=== PATIENT | male | born 1995 | race African-American/Black ===

== ENCOUNTER 2020-08-05 22:31 | Inpatient (IN) | payer OTHER ==
[~2020-08-05] VITALS: Ht 180.3 cm; Wt 52.6 kg
[~2020-08-05 22:31] MED LIST: BENADRYL25 MG; IBUPROFEN 600600 M1 PO; NOHOMEMEDICATIONS; TRAMADOL 50 MG50 MG PO
[2020-08-05 22:33] VITALS: BP 109/66
[2020-08-05] MEDS ORDERED: HUMALOG100 UNIT/1 SUBQ ×2 (22:37→22:38)
[2020-08-05] MEDS ORDERED: LANTUS SUBQ (22:38)
[2020-08-05 23:10] LABS: ABSOLUTE NEUTROPHILS 2.9 thou/uL (1.4-8.2); BASOPHILS 0.7 % (0.0-2.0); EOSINOPHILS 0.4 % (0.0-3.0); HEMOGLOBIN 14.4 gm/dL (14.0-18.0); LYMPHOCYTES 41.5 % (24.0-44.0); MCH 30.3 pg (26.0-34.0); MCHC 33.5 g/dL (28.0-37.0); MCV 90.6 fL (80.0-100.0); MONOCYTES 4.9 % (1.0-8.0); PLATELET COUNT 193 thou/uL (150-400); POLYS 52.5 % (36.0-66.0); RBC 4.75 mil/uL (4.50-6.00); WBC 5.4 thou/uL (4.0-11.0)
[2020-08-05 23:25] LABS: APTT 25.9 Seconds (24.5-32.8); PROTIME 9.6 Seconds (9.3-11.4)
[2020-08-05 23:26] LABS: CALCIUM 9.5 mg/dL (8.5-10.1); CREATININE 1.4 mg/dL (0.7-1.3); POTASSIUM 4.5 mmol/L (3.5-5.1)
[2020-08-05 23:29] LABS: ALBUMIN 4.3 g/dL (3.4-5.0); TOTAL PROTEIN 8.1 g/dL (6.4-8.2)
[2020-08-05 23:33] LABS: AMP/METHAMP Negative (Negative); BARBITURATES Negative (Negative); BENZODIAZEPINES Negative (Negative); COCAINE Negative (Negative); METHADONE Negative (Negative); OPIATES Negative (Negative); PCP Negative (Negative)
[2020-08-05 23:36] LABS: URINE BILIRUBIN NEGATIVE (Negative); URINE BLOOD NEGATIVE (Negative); URINE CLARITY CLEAR; URINE COLOR YELLOW; URINE GLUCOSE-RANDOM* 3+ (Negative); URINE KETONES 2+ (Negative); URINE LEUKOCYTES-REFLEX NEGATIVE (Negative); URINE NITRITE-REFLEX NEGATIVE (Negative); URINE PROTEIN (DIPSTICK) NEGATIVE (Negative); URINE SPECIFIC GRAVITY <= 1.005 (1.005-1.035); URINE UROBILINOGEN 0.2 E.U./dl (0.2-1.0)
--- NOTE | 2020-08-05 23:54 | NUR ---
BLOOD GLUCOSE 847
[2020-08-06] VITALS (21 sets, daily range): BP systolic 94–121; BP diastolic 53–79
[2020-08-06 01:06] LABS: LARGE PLATELETS RARE
[2020-08-06 01:26] LABS: MAGNESIUM 2.2 mg/dL (1.8-2.4)
[2020-08-06 01:30] LABS: CALCIUM 9.1 mg/dL (8.5-10.1); CREATININE 1.2 mg/dL (0.7-1.3); POTASSIUM 4.3 mmol/L (3.5-5.1)
--- NOTE | 2020-08-06 03:20 | NUR ---
This RN received report from Will, ER around 0115. Pt admitted to ICU room 247 at 0136 this morning. Pt complained of rip pain rating it a 10/10. Pts blood sugars slowely decreasing. Anion gap never open, urine positive for ketones. Pt alert and oriented times 4, NSR, VS stable, breath sounds clear, patient making adequate urine output. Per Maria Fernanda Ramsay, TALK SHOW HOST patient okay for ice chips and small sips of water. Pt rated pain 6/10 after 50mcgs Fentanyl. Resting now, continueing hourly blood sugar checks.
--- NOTE | 2020-08-06 03:53 | NUR ---
This RN attempted to call in endocrine consult at 0330 this morning. Answering service told this RN to "refer to hospitalist", which is already occuring. Will continue to monitor.
[2020-08-06 07:07] LABS: ALBUMIN 3.8 g/dL (3.4-5.0); CALCIUM 9.1 mg/dL (8.5-10.1); PHOSPHORUS 3.8 mg/dL (2.5-4.9); POTASSIUM 3.8 mmol/L (3.5-5.1)
[2020-08-06] MEDS ORDERED: HYDROCODON-ACE1 EAC7 PO (09:59)
--- NOTE | 2020-08-06 12:31 | NUR ---
PT GIVEN ONETIME DOSE OF LANTUS AND TAKEN OFF INSULIN GTT PER ORDERS. BLOOD GLUCOSE CHECKED - 360. UPDATED DR. PACK, PATIENT TO RECIEVE SLIDING SCALE INSULIN BEFORE DISCHARGING. PT TO CONTINUE CURRENT DIABETIC REGIMEN AT HOME. PT VERBALIZES UNDERSTANDING AND IMPORTANCE OF CHECKING BLOOD SUGARS ACHS, WELL ADMINISTERING INSULIN FOR MANAGEMENT. IV DISCONTINUED. DISCHARGE SUMMARY REVIEWED WITH PATIENT. SCRIPT FOR HYDROCODONE SENT TO PHARMACY. PATIENT DENIES ANY QUESTIONS OR CONCERNS.
[2020-08-08 05:06] LABS: ESTIMATED AVERAGE GLUCOSE > 398 mg/dL (()); GLYCOHEMOGLOBIN (HGB A1C) > 15.5 % (4.8-5.6)
== END 2020-08-06 13:20 | disposition home or self-care (01) | DRG 205 ==
LOC: ER 22:31 → EROBS 08-06 01:03 → ICU 08-06 01:30
PROVIDERS: Emergency Medicine; Nurse Practitioner Family; ADMIT Hospitalist; ATTEND Hospitalist
DX: S22.32XA Fracture of one rib, left side, initial encounter for closed fracture (principal); E10.10 Type 1 diabetes mellitus with ketoacidosis without coma; N17.9 Acute kidney failure, unspecified; W19.XXXA Unspecified fall, initial encounter; S30.0XXA Contusion of lower back and pelvis, initial encounter; S20.211A Contusion of right front wall of thorax, initial encounter; Y93.89 Activity, other specified; Y92.89 Other specified places as the place of occurrence of the external cause; Y99.8 Other external cause status; Z79.4 Long term (current) use of insulin; Z88.8 Allergy status to other drugs, medicaments and biological substances
CPT/HCPCS: 10078

== ENCOUNTER 2020-10-27 23:20 | Inpatient (IN) | payer OTHER ==
[~2020-10-27] VITALS: Ht 180.3 cm; Wt 52.6 kg
[~2020-10-27 23:20] MED LIST changes: +HUMALOG100 UNIT/1 SUBQ; +HYDROCODON-ACE1 EAC7 PO; +LANTUS SUBQ
[2020-10-27 23:24] VITALS: BP 109/65
[2020-10-28] VITALS (32 sets, daily range): BP systolic 88–117; BP diastolic 46–82
[2020-10-28 00:36] LABS: URINE BILIRUBIN NEGATIVE (Negative); URINE BLOOD NEGATIVE (Negative); URINE CLARITY CLEAR; URINE COLOR YELLOW; URINE GLUCOSE-RANDOM* 3+ (Negative); URINE KETONES 2+ (Negative); URINE LEUKOCYTES-REFLEX NEGATIVE (Negative); URINE NITRITE-REFLEX NEGATIVE (Negative); URINE PROTEIN (DIPSTICK) NEGATIVE (Negative); URINE SPECIFIC GRAVITY <= 1.005 (1.005-1.035); URINE UROBILINOGEN 0.2 E.U./dl (0.2-1.0)
[2020-10-28 00:51] LABS: HEMATOCRIT 45.8 % (42.0-52.0); HEMOGLOBIN 14.8 gm/dL (14.0-18.0); MCH 29.8 pg (26.0-34.0); MCHC 32.3 g/dL (28.0-37.0); MCV 92.1 fL (80.0-100.0); RBC 4.97 mil/uL (4.50-6.00); RDW 12.9 % (10.5-14.5); WBC 5.9 thou/uL (4.0-11.0)
[2020-10-28 00:59] LABS: BE(vivo) -9.1 mmol/L (-2 to +3); HCO3 16.3 mmol/L (22.0-26.0); PCO2 VENOUS 33.8 mmHg (41.0-51.0); PO2 VENOUS 82.4 mmHg (35.0-45.0)
[2020-10-28 01:07] LABS: CALCIUM 10.2 mg/dL (8.5-10.1); CREATININE 1.8 mg/dL (0.7-1.3); POTASSIUM 5.3 mmol/L (3.5-5.1)
[2020-10-28 01:08] LABS: MAGNESIUM 2.1 mg/dL (1.8-2.4)
[2020-10-28 05:00] LABS: CREATININE 1.4 mg/dL (0.7-1.3); MAGNESIUM 1.9 mg/dL (1.8-2.4)
[2020-10-28 05:02] LABS: ALBUMIN 3.3 g/dL (3.4-5.0); PHOSPHORUS 3.2 mg/dL (2.5-4.9); POTASSIUM 4.2 mmol/L (3.5-5.1)
--- NOTE | 2020-10-28 06:17 | NUR ---
PT ARRIVED TO ICU FROM ER THIS AM AT 0315. VSS. PT A&0X4. ADMISSION ASSESSMENT CHARTED. PT STARTED ON DKA PRT. PT IS STABLE NOW, MOST RECENT BG WAS 297 AT 0605AM. PT ON INSULIN GTT AND NS. NEXT SET OF Q4 LABS SCHEDULED FOR 0815 THIS AM. WILL CONTINUE TO MONITOR
[2020-10-28 08:37] LABS: ALBUMIN 3.3 g/dL (3.4-5.0); CALCIUM 9.1 mg/dL (8.5-10.1); CREATININE 1.1 mg/dL (0.7-1.3); MAGNESIUM 1.9 mg/dL (1.8-2.4); PHOSPHORUS 2.5 mg/dL (2.6-4.7); POTASSIUM 3.8 mmol/L (3.5-5.1)
--- NOTE | 2020-10-28 08:53 | EKG ---
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: GAVIN : 1995 Requested By: Jose C Gutierrez Order Number: [id number] MD: Andrew Martinez Measurements Intervals [place] Rate: 98 P: 41 KS: 136 QRS: -24 QRSD: 93 T: 60 QT: 346 QTc: 442 Interpretive Statements Sinus rhythm Borderline left axis deviation ST elevation suggests acute pericarditis Baseline wander in lead(s) V1 No previous ECG available for comparison Electronically Signed On 10-28-2020 8:52:56 CUSTOMS DIRECTOR by Andrew Martinez [email or web address] <ELECTRONICALLY SIGNED> By: Andrew Martinez MD, [facility] 10/28/20 0852 D: 1255 Andrew Martinez MD, FACC /EPI
--- NOTE | 2020-10-28 15:10 | NUR ---
PT RESTING COMFORTABLY. INSULIN GTT D/C AT 1040. LANTUS AND ISS STARTED. ANION GAP CLOSED. FLUIDS CHANGED PER [facility] PROTOCAL. HOSPITALIST WOULD LIKE PT TO BE TRANSFERED TO A MED/SURG UNIT. MEDS/IMAGES/LABS REVIEWED. PT EDUCATED ON CONDITION AND POC. PT PROGRESSING TOWARDS POC.
[2020-10-28 19:50] LABS: CALCIUM 9.4 mg/dL (8.5-10.1); CREATININE 1.2 mg/dL (0.7-1.3); POTASSIUM 3.4 mmol/L (3.5-5.1)
--- NOTE | 2020-10-29 00:08 | NUR ---
ASSUMED PT CARE AROUND 1900. A&OX4. DENIED ANY PAIN OR SOA. THIS RN SPOKE WITH SAW OPERATOR MESSAGE BROKER DEVELOPER FOR HOSPITALIST REGARDING PT'S IVF ORDERS AND LABS. ORDERS RECEIVED. SS INSULIN GIVEN INDICATED. PT ATE BEDTIME SNACK. REPORT GIVEN TO RN ON . PT TRANSFERED TO ROOM 464 DUE TO MED/SURG TELE STATUS. ALL BELONGINGS SENT WITH PT. HE IS PROGRESSING TOWARD POC GOALS.
--- NOTE | 2020-10-29 04:18 | NUR ---
ASSUMED CARE OF PT FROM ICU AT 0000HRS. PT IS AOX4 AND LETS NEEDS BE KNOWN. FALL PRECAUTION IN PLACE. PT DENIED PAIN, NAUSEA OR SOA. PT RUNS SR ON TELE. PT REFUSED MORNING LABS. PT WAS ABLE TO GET COMFORTABLE AND SLEEP PART OF THE SHIFT. WILL CONTINUE TO MONIOTR FOR CHANGES.
[2020-10-29 08:57] VITALS: BP 106/69
--- NOTE | 2020-10-29 10:19 | NUR ---
ASSUMED PT CARE THIS AM. PT VSS, A&OX4. PT COOPERATIVE WITH STAFF. PT WANTING TO GO HOME TODAY. INITIALLY, PT REFUSED LABS BUT THEN AGREED TO HAVING THEM DRAWN. INSULIN GIVEN PER EMAR. IV APTENT, FLUIDS INFUSING. PT COMPLAINING OF NO PAIN AT THIS TIME. PT TO TAKE A SHOWER. PLAN FOR PT IS TO GO HOME TODAY. AWAITING DISCHARGE TO BE COMPLETED.
[2020-10-29 10:58] LABS: HEMATOCRIT 36.8 % (42.0-52.0); MCH 29.6 pg (26.0-34.0); MCHC 32.8 g/dL (28.0-37.0); MCV 90.3 fL (80.0-100.0); RBC 4.07 mil/uL (4.50-6.00); RDW 12.6 % (10.5-14.5); WBC 4.4 thou/uL (4.0-11.0)
[2020-10-29 11:05] LABS: HEMOGLOBIN 12.1 gm/dL (14.0-18.0)
[2020-10-29 11:11] LABS: ALBUMIN 2.8 g/dL (3.4-5.0); CALCIUM 8.9 mg/dL (8.5-10.1)
[2020-10-29 11:28] VITALS: BP 106/69
== END 2020-10-29 13:05 | disposition home or self-care (01) | DRG 638 ==
LOC: ER 23:20 → EROBS 10-28 02:02 → ICU 10-28 03:15 → 4W 10-29 00:02
PROVIDERS: Emergency Medicine; Internal Medicine; Nurse Practitioner Family; ADMIT Hospitalist; ATTEND Hospitalist
DX: E10.10 Type 1 diabetes mellitus with ketoacidosis without coma (principal); E87.1 Hypo-osmolality and hyponatremia; E87.5 Hyperkalemia; N17.9 Acute kidney failure, unspecified; Z88.8 Allergy status to other drugs, medicaments and biological substances; Z83.3 Family history of diabetes mellitus; Z79.899 Other long term (current) drug therapy
CPT/HCPCS: 10203

== ENCOUNTER 2021-06-10 17:20 | Inpatient (IN) | payer OTHER ==
[~2021-06-10] VITALS: Ht 180.3 cm; Wt 45.4 kg
--- NOTE | ~2021-06-10 | EMS ---
[address] [address] EMS Patient Care Report Name: SHLOMO VILCHIS Room #: 249-P ADM IN M.R.#: [id number] Admission: 06/10/21 Attend Phys: Gene José MD Discharge: Date of : [birth year] Report #: [id number] THIS REPORT FOR: //name// Report Transmitted: 06/12/2021 14:28 EMS Care Summary [place], [place]/[facility] Incident [id number] @ 06/10/2021 16:46 Incident Location [address] [place], [place] [id number] Patient SHLOMO VILCHIS Male, 26 Years 1995 Patient Address [address] [place] [address] Patient History Other,Diabetes, Patient Allergies No known allergies, Patient Medications Insulin, Chief Complaint decreased level of consciousness Disposition Transported Lights/[place] Dispatch Reason Sick Person Transported To [facility] Narrative Arrived to second floor apt to find pt laying on side on bed in bedroom. Sister stated relatives stated he was acting somewhat strange yesterday. Today [facility] [address] [place] [address] EMS Patient Care Report Name: SHLOMO VILCHIS Room #: 249-P ADM IN M.R.#: [id number] Admission: 06/10/21 Attend Phys: Gene José MD Discharge: Date of : [birth year] Report #: [id number] found him unresponsive. Sister stated he could not afford his insulin so he does not take it. Mom on phone with sister stated pt told mother he took a covid test recently and that he told her it was negative. Pt eyes are open but they are not tracking. Pt has urinated on himself and there is some vomit dried on the bed. Pt does not respond to verbal commands or painful stimuli. Pt bgl reads HIGH and pt is hypotensive. Pt placed on megamover and carried down 2 sets of external stairs. Pt placed on cot and secured to cot with cot straps. Pt placed in back of unit. Multiple attempts at IVs were unsuccessful. Initially pt was in sinus tach. Pt transported emergency to closest hospital. En route pt would briefly go into SVT and then convert back to sinus tach within a minute. Pt care transferred to RN. Initial Vitals @17:00P: 106, @17:06P: 109,Glucose: -2, @17:17P: 124,R: 22,Pain: 0/10,SpO2: 94, @17:16P: 204,CO: 3, @17:05P: 213,CO: 8,SpO2: 97, @17:14P: 115,BP: 79/45,CO: 2,SpO2: 100, @17:00P: 109,CO: 9,SpO2: 97, @17:06BP: 79/38,SpO2: 96, @17:12P: 118,GCS: 6,SpO2: 96, Assessments @16:56MENTAL:SKIN:HEENT:Head/Face: No Abnormalities,Eyes: No Abnormalities,Neck/Airway: No Abnormalities,LUNG SOUNDS:General: Vomiting,Left Upper: No Abnormalities,Right Upper: No Abnormalities,Left Lower: No Abnormalities,Right Lower: No Abnormalities,ABDOMEN:General: Vomiting,Left Upper: No Abnormalities,Right Upper: No Abnormalities,Left Lower: No Abnormalities,Right Lower: No Abnormalities,PELVIS//GI:Incontinence,EXTREMITIES:Left Arm: No Abnormalities,Right Arm: No Abnormalities,Left Leg: No Abnormalities,Right Leg: No Abnormalities,PULSE:NEURO:Other, Impression Altered Mental Status Procedures @16:56ALS AssessmentResponse: UnchangedSucceeded@16:583-Lead ECGResponse: UnchangedSucceeded@16:57Oxygen FlowRate: 2 Device: Nasal Cannula (NC) Response: UnchangedSucceeded@17:07Saline Lock 0cc (20 ga) Site: Antecubital-RightResponse: UnchangedFailed@17:02Saline Lock 0cc (20 ga) Site: Antecubital-LeftResponse: UnchangedFailed@17:06Saline Lock 0cc (20 ga) Site: Antecubital-RightResponse: UnchangedFailed@17:01Saline Lock 0cc (20 ga) Site: Antecubital-LeftResponse: UnchangedFailed [address] [address] EMS Patient Care Report Name: SHLOMO VILCHIS LESLYE Room #: 249-P [facility] IN M.R.#: [id number] Admission: 06/10/21 Attend Phys: Gene José MD Discharge: Date of : [birth year] Report #: [id number] Timeline 16:44,Call Received 16:44,Dispatch Notified 16:46,Dispatched 16:48,En Route 16:51,On Scene 16:55,At Patient 16:56,ALS Assessment,Response: UnchangedSucceeded, 16:57,Oxygen FlowRate: 2 Device: Nasal Cannula (NC) Response: UnchangedSucceeded, 16:58,3-Lead ECG,Response: UnchangedSucceeded, 17:00,BP: / M,PULSE: 106,RR: R,SPO2: Ox,ETCO2: ,BG: ,PAIN: ,GCS: , 17:00,BP: / M,PULSE: 109,RR: R,SPO2: 97 Ox,ETCO2: ,BG: ,PAIN: ,GCS: , 17:01,Saline Lock 0cc 20 ga Site: Antecubital-Left,Response: UnchangedFailed, 17:02,Saline Lock 0cc 20 ga Site: Antecubital-Left,Response: UnchangedFailed, 17:05,BP: / M,PULSE: 213,RR: R,SPO2: 97 Ox,ETCO2: ,BG: ,PAIN: ,GCS: , 17:06,BP: / M,PULSE: 109,RR: R,SPO2: Ox,ETCO2: ,BG: -2,PAIN: ,GCS: , 17:06,BP: 79/38 M,PULSE: ,RR: R,SPO2: 96 Ox,ETCO2: ,BG: ,PAIN: ,GCS: , 17:06,Saline Lock 0cc 20 ga Site: Antecubital-Right,Response: UnchangedFailed, 17:07,Saline Lock 0cc 20 ga Site: Antecubital-Right,Response: UnchangedFailed, 17:11,Depart Scene 17:12,BP: / M,PULSE: 118,RR: R,SPO2: 96 Ox,ETCO2: ,BG: ,PAIN: ,GCS: 6, 17:14,BP: 79/45 M,PULSE: 115,RR: R,SPO2: 100 Ox,ETCO2: ,BG: ,PAIN: ,GCS: , 17:16,BP: / M,PULSE: 204,RR: R,SPO2: Ox,ETCO2: ,BG: ,PAIN: ,GCS: , 17:17,BP: / M,PULSE: 124,RR: 22 R,SPO2: 94 Ox,ETCO2: ,BG: ,PAIN: 0,GCS: , 17:17,At Destination 17:26,Call Closed Disclaimer v1.1 Copyright 2020 [employer] This EMS Care Summary contains data elements from the applicable legal record (which may be displayed differently). It is designed to provide pertinent information for the following purposes: continuity of care, clinical quality, and state data reporting. The complete legal record is available to ED staff and administrators of the receiving hospital in [employer]'s Patient Tracker. All data is provided "as is."
[2021-06-10 17:25] VITALS: BP 64/30
[2021-06-10 17:38] LABS: BE(vivo) -27.6 mmol/L (-2 to +3); HCO3 3.8 mmol/L (22.0-26.0); PO2 110.4 mmHg (80.0-100.0); sO2 94.2 % (92.0-98.0)
[2021-06-10 17:39] LABS: PCO2 18.8 mmHg (35.0-45.0); pH 6.919 (7.360-7.450)
[2021-06-10 17:55] LABS: HEMOGLOBIN 12.8 gm/dL (14.0-18.0); PLATELET COUNT 283 thou/uL (150-400)
--- NOTE | 2021-06-10 18:05 | NUR ---
TALKED WITH CYNTHIA VILCHIS, MOTHER OF THE PT, WHO STATED THE PT CALLED HER LAST NIGHT AND SAID HE DID NOT FEEL WELL. HE LAST RESPONDED TO HER ON TEXT MESSAGING OVERNIGHT AT 0139 HOURS. PT WAS FOUND TODOY IN HIS BED AND UNRESPONSIVE. PT IS TYPE 1 DM AND DIAGNOSED WITH CROHN'S A MONTH AGO.
[2021-06-10 18:09] LABS: ALBUMIN 3.6 g/dL (3.4-5.0); BUN 72 mg/dL (7-18); CALCIUM 9.6 mg/dL (8.5-10.1); CHLORIDE 86 mmol/L (98-107); CREATININE 5.5 mg/dL (0.7-1.3); LIPASE 643 U/L (73-393); SGOT 10 U/L (15-37); SGPT 30 U/L (16-63); SODIUM 124 mmol/L (136-145); TOTAL BILIRUBIN 0.7 mg/dL (0.2-1.0); TOTAL PROTEIN 7.2 g/dL (6.4-8.2); TROPONIN-I <0.06 ng/mL (<0.06)
[2021-06-10 18:10] LABS: ANION GAP 32 mmol/L (7-16)
[2021-06-10 18:12] LABS: CO2 6 mmol/L (21-32); POTASSIUM 7.8 mmol/L (3.5-5.1)
[2021-06-10 18:13] LABS: MAGNESIUM 3.6 mg/dL (1.8-2.4)
--- NOTE | 2021-06-10 18:29 | NUR ---
CL PLACED IN ER FOR DKA
[2021-06-10 18:32] LABS: URINE BILIRUBIN NEGATIVE (Negative); URINE BLOOD 2+ (Negative); URINE CLARITY CLEAR; URINE COLOR YELLOW; URINE GLUCOSE-RANDOM* 3+ (Negative); URINE KETONES 2+ (Negative); URINE LEUKOCYTES-REFLEX NEGATIVE (Negative); URINE NITRITE-REFLEX NEGATIVE (Negative); URINE PROTEIN (DIPSTICK) TRACE (Negative); URINE UROBILINOGEN 0.2 E.U./dl (0.2-1.0)
[2021-06-10 18:41] LABS: AMP/METHAMP Negative (Negative); BARBITURATES Negative (Negative); BENZODIAZEPINES Negative (Negative); COCAINE Negative (Negative); METHADONE Negative (Negative); OPIATES Negative (Negative); PCP Negative (Negative)
[2021-06-10 18:53] LABS: RBC 4.31 mil/uL (4.50-6.00)
[2021-06-10 18:54] LABS: HEMATOCRIT 39.5 % (42.0-52.0); MCH 29.5 pg (26.0-34.0); MCHC 32.3 g/dL (28.0-37.0); MCV 91.5 fL (80.0-100.0); RDW 13.8 % (10.5-14.5)
[2021-06-10 18:58] LABS: ABSOLUTE NEUTROPHILS 20.3 thou/uL (1.4-8.2)
[2021-06-10 19:02] LABS: PHOSPHORUS 13.6 mg/dL (2.6-4.7)
[2021-06-10 19:05] LABS: GLUCOSE 1883 mg/dL (74-106)
[2021-06-10 19:06] LABS: BACTERIA-REFLEX None Seen /HPF (None Seen); CASTS None Seen /LPF (None Seen); CRYSTALS None Seen /LPF (None Seen); MUCUS >6 Heavy strn/LPF (None Seen); SQUAMOUS 0-3 Few /LPF (0-3); URINE RBC 1-2 Rare /HPF (NONE SEEN); URINE WBC-REFLEX 0-5 Rare /HPF (0-5)
[2021-06-10 20:12] LABS: CHOLESTEROL 186 mg/dL (<200); HDL CHOLESTEROL 61 mg/dL (>40); LDL CHOLESTEROL 60 mg/dL (<100); TRIGLYCERIDE 328 mg/dL (<150); VLDL 66 mg/dL (<40)
[2021-06-10 20:15] LABS: SERUM ASSESSMENT Clear
[2021-06-10 21:06] LABS: CALCIUM 9.4 mg/dL (8.5-10.1)
[2021-06-10 21:12] LABS: CREATININE 4.4 mg/dL (0.7-1.3)
[2021-06-10 21:13] LABS: POTASSIUM 5.1 mmol/L (3.5-5.1)
[2021-06-10 23:13] LABS: FOLIC ACID 53.5 ng/mL (8.6-58.9)
[2021-06-11] VITALS (59 sets, daily range): BP systolic 80–111; BP diastolic 40–83
[2021-06-11 01:06] LABS: CALCIUM 9.5 mg/dL (8.5-10.1); CREATININE 3.5 mg/dL (0.7-1.3)
[2021-06-11 01:12] LABS: POTASSIUM 2.9 mmol/L (3.5-5.1)
--- NOTE | 2021-06-11 03:00 | NUR ---
Margarita, pt's mother, called for update
[2021-06-11 04:43] LABS: CALCIUM 8.9 mg/dL (8.5-10.1)
[2021-06-11 04:44] LABS: CREATININE 2.7 mg/dL (0.7-1.3); POTASSIUM 3.4 mmol/L (3.5-5.1)
[2021-06-11 04:55] LABS: HEMATOCRIT 38.6 % (42.0-52.0); HEMOGLOBIN 13.4 gm/dL (14.0-18.0); MCH 30.3 pg (26.0-34.0); MCHC 34.7 g/dL (28.0-37.0); MCV 87.2 fL (80.0-100.0); RBC 4.42 mil/uL (4.50-6.00); RDW 14.1 % (10.5-14.5); WBC 10.3 thou/uL (4.0-11.0)
--- NOTE | 2021-06-11 09:17 | NUR ---
0845 PATIENT ADMITTED INTO ICU ROOM 249 PER CART FROM THE ED WITH LEVOPHED AND INSULIN INFUSING. CALL PLACED TO DR FAJARDO. PATIENT PLACED ON STATE MANAGER, O2 SAT MONITOR AND BP TO CYCLE Q15 MIN.
[2021-06-11 09:47] LABS: CALCIUM 9.1 mg/dL (8.5-10.1); CREATININE 2.4 mg/dL (0.7-1.3); POTASSIUM 3.9 mmol/L (3.5-5.1)
[2021-06-11 09:51] LABS: ALBUMIN 3.2 g/dL (3.4-5.0); MAGNESIUM 2.4 mg/dL (1.8-2.4); PHOSPHORUS 2.6 mg/dL (2.6-4.7)
--- NOTE | 2021-06-11 12:22 | EKG ---
[address] [place] [address] ELECTROCARDIOGRAM REPORT Name: VA VILCHISSHLOMOSAIGE GAVIN Room #: 249-P ADM IN M.R.#: [id number] Admission: 06/10/21 Attend Phys: Gene José MD Discharge: Date of : [birth year] Report #: [id number] [facility] ED Test Date: 2021-06-10 Test Time: 17:19:36 Pat Name: SHLOMO VILCHIS Department: Room: 249 Gender: M Freight Unloader: PALMA : 1995 Requested By: Herminia Morel Order Number: [id number] MD: Benitez Yi Measurements Intervals [place] Rate: 113 P: 85 TN: 123 QRS: -79 QRSD: 105 T: 70 QT: 358 QTc: 491 Interpretive Statements Sinus tachycardia Left anterior fascicular block Prolonged QT interval Baseline wander in lead(s) V4 Compared to ECG 10/28/2020 00:56:17 Left anterior fascicular block now present Prolonged QT interval now present Sinus rhythm no longer present ST (T wave) deviation no longer present Electronically Signed On 06-11-2021 12:22:32 CDT by Benitez Yi [email or web address] <ELECTRONICALLY SIGNED> By: Benitez Yi MD 06/11/21 1222 1719 1719 Benitez Yi MD /EPI
--- NOTE | 2021-06-11 18:36 | NUR ---
PATIENT IS PROGRESSING SLOWLY TOWARDS OUTCOME GOALS. DIURESED AFTER LASIX. LEVOPHED TITRATED TO KEEP MAP GREATER THAN 65MMHG. INSULIN DRIP CONTINUES TOLERATED CLEAR LIQ DIET THIS EVENING, VOMITED AFTER LUNCH. PLEASE REFER TO ASSESSMENTS.
--- NOTE | 2021-06-11 18:38 | NUR ---
1500 SPOKE WITH THE PATIENT'S MOTHER AND UPDATED HER ON THE PATIENT'S CONDITION AND THE POC. QUESTIONS ANSWERED AND REASSURANCE GIVEN.
[2021-06-12] VITALS (62 sets, daily range): BP systolic 85–117; BP diastolic 51–94
[2021-06-12 05:11] LABS: HEMATOCRIT 36.1 % (42.0-52.0); HEMOGLOBIN 12.2 gm/dL (14.0-18.0); MCH 30.1 pg (26.0-34.0); MCHC 33.8 g/dL (28.0-37.0); RBC 4.06 mil/uL (4.50-6.00); WBC 10.8 thou/uL (4.0-11.0)
[2021-06-12 05:32] LABS: CALCIUM 8.8 mg/dL (8.5-10.1); POTASSIUM 3.6 mmol/L (3.5-5.1)
--- NOTE | 2021-06-12 06:00 | NUR ---
PT AWAKE AND ALERT ROSADO NEURO INTACT LEVOPHED TITRATED TO 1 MCG INSULIN GTT 2.5 UNITS ACCUCHECK 119 BATHED. SINUS RHYTHM. PROGHRESSING TOWARD GOALS. PT WANTS TO GET AN INSULIN PUMP TO HELP HIM KEEP ON TOP OF HIS BS
[2021-06-12 06:06] LABS: ESTIMATED AVERAGE GLUCOSE > 398 mg/dL (()); GLYCOHEMOGLOBIN (HGB A1C) > 15.5 % (4.8-5.6)
--- NOTE | 2021-06-12 11:00 | NUR ---
Chart review. DKA, on insulin drip. Cm visited with him at bedside, cm cont to wear face mask and shield during visit.intro to cm and dcp. He reported he independent, works outside his home. Lives alone in apartment. Goes to [facility] and gets his insulin. Dr Perez with [facility]. [place] amb[place]. Will cont following as needed for dc needs.
--- NOTE | 2021-06-12 16:18 | NUR ---
DROWSY, AWAKENS EASILY AND IS ORIENTED. VITALS STABLE AND WEANED OFF LEVO. INSULING GTT DC'D THIS AFTERNOON AND STARTED ON SQ INSULIN. STARTED ON ADA DIET. BLOOD GLUCOSE LOW (67, 62) SNACKS GIVEN (MILK, O.J. AND SANJANA CRACKERS) AND WILL RECHECK. C/O NEUROPATHY PAIN AND DR. FAJARDO PAGED AND NEW ORDERS RECEIVED.
[2021-06-13] VITALS (10 sets, daily range): BP systolic 83–97; BP diastolic 43–59
--- NOTE | 2021-06-13 09:34 | NUR ---
Discussed during am unite rounds, possible able to move out of icu when bed opens up. No anticipated dc needs. Will cont following as needed for dc needs.
[2021-06-13 10:57] LABS: CREATININE 1.7 mg/dL (0.7-1.3); POTASSIUM 3.5 mmol/L (3.5-5.1)
[2021-06-13] MEDS ORDERED: HUMALOG100 UNIT/1 SUBQ (11:58)
[2021-06-13] MEDS ORDERED: LANTUS SUBQ (11:58)
--- NOTE | 2021-06-13 12:00 | NUR ---
sunitha visited with bibi at bedside, cm cont to wear face mask and shield during visit. provided safe net mal[place] packet and good rx card to save on rx. Cm re-checked with him to see if he had his ambetter insurance card on him?, no i came in by ambulance and when get home i can send copy or pic of it, just active as on 06/04/21 per bibi. he stated he should have ride home when dc. dcp home no needs.
--- NOTE | 2021-06-13 13:54 | NUR ---
Patient IV's were removed. White catheter was removed. paitent leaving with all belongings. discharge instructions were given and explained to patient. Patient is being transported off unit via wheelchair.
== END 2021-06-13 13:55 | disposition home or self-care (01) | DRG 637 ==
LOC: ER 17:20 → EROBS 18:53 → ICU 06-11 08:30
PROVIDERS: Emergency Medicine; Internal Medicine; Nurse Practitioner Family; ADMIT Hospitalist; ATTEND Hospitalist
PROC: 06HY33Z Insertion of Infusion Device into Lower Vein, Percutaneous Approach (ICD-10-PCS; principal; 2021-06-10)
PROC: B548ZZA Ultrasonography of Superior Vena Cava, Guidance (ICD-10-PCS; principal; 2021-06-10)
PROC: 02HV33Z Insertion of Infusion Device into Superior Vena Cava, Percutaneous Approach (ICD-10-PCS; principal; 2021-06-10)
DX: E10.10 Type 1 diabetes mellitus with ketoacidosis without coma (principal); G93.41 Metabolic encephalopathy; N17.0 Acute kidney failure with tubular necrosis; K50.90 Crohn's disease, unspecified, without complications; E87.0 Hyperosmolality and hypernatremia; E87.5 Hyperkalemia; Z20.822 Contact with and (suspected) exposure to COVID-19
CPT/HCPCS: 10078

== ENCOUNTER 2021-07-07 09:07 | Inpatient (IN) | payer OTHER ==
[~2021-07-07] VITALS: Ht 180.3 cm; Wt 53.5 kg
[2021-07-07] VITALS (29 sets, daily range): BP systolic 81–109; BP diastolic 45–76
--- NOTE | ~2021-07-07 | EMS ---
[address] [address] EMS Patient Care Report Name: SHLOMO VILCHIS Room #: 457-P ADM IN M.R.#: [id number] Admission: 07/07/21 Attend Phys: Bassem Caldwell Discharge: Date of : [birth year] Report #: [id number] THIS REPORT FOR: //name// Report Transmitted: 07/12/2021 09:54 EMS Care Summary [place], [place]/[facility] Incident [id number] @ 07/07/2021 08:43 Incident Location [address] [place] [address] Patient SHLOMO VILCHIS Male, 26 Years 1995 Patient Address [address] [place] [address] Patient History Other,Diabetes, Patient Allergies No known allergies, Patient Medications Insulin, Chief Complaint Unresponsive Disposition Transported No Lights/[place] Dispatch Reason Unconscious/Fainting Transported To [facility] Narrative Upon arrival PT was laying in the supine position on bed. FD was already on scene with PT. PT was unresponsive upon arrival of FD. PT was last seen well the prior night by family. PT was carried down stairs to stretcher and taken to [address] [address] EMS Patient Care Report Name: SHLOMO VILCHIS Room #: 457-P ADM IN M.R.#: [id number] Admission: 07/07/21 Attend Phys: Bassem Caldwell Discharge: Date of : [birth year] Report #: [id number] back of ambulance for further medical evaluation and intervention during transport. Initial Vitals @08:59P: 69,SpO2: 82, @09:03P: 103,R: 12,BP: 116/80,Pain: 0/10,GCS: 8,SpO2: 100,Revised Trauma: 10, @08:59P: 68,R: 6,BP: 59/36,Pain: 0/10,GCS: 3,Glucose: -2,SpO2: 89,Revised Trauma: 4, Assessments @08:51MENTAL:Unresponsive,SKIN:No Abnormalities,HEENT:Head/Face: No Abnormalities,Eyes: No Abnormalities,Neck/Airway: No Abnormalities,LUNG SOUNDS:General: No Abnormalities,Left Upper: No Abnormalities,Right Upper: No Abnormalities,Left Lower: No Abnormalities,Right Lower: No Abnormalities,ABDOMEN:General: No Abnormalities,Left Upper: No Abnormalities,Right Upper: No Abnormalities,Left Lower: No Abnormalities,Right Lower: No Abnormalities,PELVIS//GI:No Abnormalities,EXTREMITIES:Capillary Refill: Left Upper: < 2 Sec,Capillary Refill: Right Upper: < 2 Sec,PULSE:Radial: 2+ Normal,NEURO:No Abnormalities, Impression Hypotension Procedures @09:02Normal Saline (.9% NaCl) 500cc (EZ-IO (Blue 25mm)) Site: TJ-Srftt-Xaby ProximalResponse: ImprovedSucceeded@08:5912-Lead ECGResponse: UnchangedSucceeded@09:01Oxygen FlowRate: 15 Device: Bag Valve Mask (BVM) Response: ImprovedSucceeded@08:51ALS AssessmentResponse: UnchangedSucceeded@09:00Saline Lock 0cc (22 ga) Site: Antecubital-LeftResponse: UnchangedFailed@09:01Saline Lock 0cc (22 ga) Site: Antecubital-LeftResponse: UnchangedFailed@08:57StretcherResponse: Unchanged Timeline 08:41,Call Received 08:41,Dispatch Notified 08:43,Dispatched 08:44,En Route 08:50,On Scene 08:51,At Patient 08:51,ALS Assessment,Response: UnchangedSucceeded, 08:57,Stretcher,Response: Unchanged 08:59,12-Lead ECG,Response: UnchangedSucceeded, 08:59,BP: / M,PULSE: 69,RR: R,SPO2: 82 Ox,ETCO2: ,BG: ,PAIN: ,GCS: , 08:59,BP: 59/36 M,PULSE: 68,RR: 6 R,SPO2: 89 Ox,ETCO2: ,BG: -2,PAIN: 0,GCS: 3, 09:00,Saline Lock 0cc 22 ga Site: Antecubital-Left,Response: UnchangedFailed, 09:00,Depart Scene [address] [address] EMS Patient Care Report Name: SHLOMO VILCHIS LESLYE Room #: 457-P ADM IN M.R.#: [id number] Admission: 07/07/21 Attend Phys: Bassem Caldwell Discharge: Date of : [birth year] Report #: [id number] 09:01,Oxygen FlowRate: 15 Device: Bag Valve Mask (BVM) Response: ImprovedSucceeded, 09:01,Saline Lock 0cc 22 ga Site: Antecubital-Left,Response: UnchangedFailed, 09:02,Normal Saline (.9% NaCl) 500cc EZ-IO (Blue 25mm) Site: TL-Zknsq-Xsnh Proximal,Response: ImprovedSucceeded, 09:03,BP: 116/80 M,PULSE: 103,RR: 12 R,SPO2: 100 Ox,ETCO2: ,BG: ,PAIN: 0,GCS: 8, 09:05,At Destination 09:36,Call Closed Disclaimer v1.1 Copyright 2020 [employer] This EMS Care Summary contains data elements from the applicable legal record (which may be displayed differently). It is designed to provide pertinent information for the following purposes: continuity of care, clinical quality, and state data reporting. The complete legal record is available to ED staff and administrators of the receiving hospital in [employer]'s Patient Tracker. All data is provided "as is."
[2021-07-07 09:41] LABS: HEMATOCRIT 45.4 % (42.0-52.0); HEMOGLOBIN 13.1 gm/dL (14.0-18.0); MCH 30.2 pg (26.0-34.0); MCHC 28.8 g/dL (28.0-37.0); MCV 104.6 fL (80.0-100.0); PLATELET COUNT 362 thou/uL (150-400); RBC 4.34 mil/uL (4.50-6.00)
[2021-07-07 09:54] LABS: ALBUMIN 3.7 g/dL (3.4-5.0); CALCIUM 9.5 mg/dL (8.5-10.1); CREATININE 4.3 mg/dL (0.7-1.3); TOTAL BILIRUBIN 0.5 mg/dL (0.2-1.0); TOTAL PROTEIN 7.3 g/dL (6.4-8.2)
[2021-07-07 10:00] LABS: POTASSIUM 7.3 mmol/L (3.5-5.1)
[2021-07-07 10:24] LABS: URINE BLOOD 1+ (Negative); URINE CLARITY CLEAR; URINE COLOR YELLOW; URINE GLUCOSE-RANDOM* 3+ (Negative); URINE KETONES 2+ (Negative); URINE LEUKOCYTES-REFLEX NEGATIVE (Negative); URINE PROTEIN (DIPSTICK) TRACE (Negative); URINE SPECIFIC GRAVITY >= 1.030 (1.005-1.035); URINE UROBILINOGEN 0.2 E.U./dl (0.2-1.0)
[2021-07-07 10:35] LABS: ICTOTEST (BILI CONFIRMATORY) Negative (Negative); URINE BILIRUBIN NEGATIVE (Negative); URINE NITRITE-REFLEX POSITIVE (Negative)
[2021-07-07 10:49] LABS: CASTS None Seen /LPF (None Seen); SQUAMOUS 4-10 Moderate /LPF (0-3)
[2021-07-07 10:50] LABS: URINE WBC-REFLEX 0-5 Rare /HPF (0-5)
[2021-07-07 10:51] LABS: BACTERIA-REFLEX None Seen /HPF (None Seen); CRYSTALS None Seen /LPF (None Seen); MUCUS 0-3 Light strn/LPF (None Seen); URINE RBC None Seen /HPF (NONE SEEN)
[2021-07-07 11:44] LABS: ABSOLUTE NEUTROPHILS 21.3 thou/uL (1.4-8.2); MACROCYTES 1+; METAMYELOCYTES 4 %
--- NOTE | 2021-07-07 12:11 | EKG ---
[address] [place] [address] ELECTROCARDIOGRAM REPORT Name: SHLOMO VILCHIS Room #: 170-11 ADM IN M.R.#: [id number] Admission: 07/07/21 Attend Phys: Bassem Caldwell Discharge: Date of : [birth year] Report #: [id number] [facility] ED Test Date: 2021-07-07 Test Time: 09:15:26 Pat Name: SHLOMO VILCHIS Department: Room: 170 Gender: M Supervisor Orchard: ERICA : 1995 Requested By: Rip Mendez Order Number: [id number] MD: Andrew Martinez Measurements Intervals [place] Rate: 66 P: 79 NE: 152 QRS: 20 QRSD: 104 T: 75 QT: 501 QTc: 525 Interpretive Statements Sinus rhythm Prolonged QT interval Compared to ECG 06/10/2021 17:19:36 Sinus tachycardia no longer present Left anterior fascicular block no longer present Electronically Signed On 07-07-2021 12:11:26 CDT by Andrew Martinez [email or web address] <ELECTRONICALLY SIGNED> By: Andrew Martinez MD, [facility] 07/07/21 1211 4 4 Andrew Martinez MD, [facility] /EPI
[2021-07-07 12:49] LABS: MAGNESIUM 3.5 mg/dL (1.8-2.4)
--- NOTE | 2021-07-07 13:20 | NUR ---
VAT CONSULTED FOR PICC BUT DUE TO LABS, KIDNEY FCN, CVAD MORE APPROPRIATE. CONSENT AND ORDER VERIFIED. RIJ WAS WIDELY PATENT WITH USG. 6FR TL POWER JACC 25 CM INSERTED TO 7CM EXTERNAL WITH PEAKED P-WAVES CONFIRMATION. RIJ RELEASED FOR IMMEDIATE USE PER PROTOCOL. GAUZE AT SITE FOR BLEEDING
[2021-07-07 13:21] LABS: PHOSPHORUS 14.2 mg/dL (2.5-4.9)
[2021-07-07 13:21] LABS: HCO3 1.9 mmol/L (22.0-26.0); PCO2 12.9 mmHg (35.0-45.0); PO2 293.6 mmHg (80.0-100.0); pH 6.792 (7.360-7.450); sO2 99.1 % (92.0-98.0)
[2021-07-07 15:29] LABS: CALCIUM 7.8 mg/dL (8.5-10.1); POTASSIUM 4.1 mmol/L (3.5-5.1)
[2021-07-07 15:30] LABS: CREATININE 3.1 mg/dL (0.7-1.3)
[2021-07-07 17:16] LABS: CALCIUM 7.7 mg/dL (8.5-10.1); CREATININE 2.7 mg/dL (0.7-1.3); POTASSIUM 3.2 mmol/L (3.5-5.1)
--- NOTE | 2021-07-07 18:51 | NUR ---
PT ARRIVED TO ICU FROM THE ED PLACED ON AN ICU MONITOR. [facility] CALLED TO PROVIDER. FOLLOWING DKA PROTOCOL. ADM ASSESSMENT COMPLETE AND REPORT GIVEN TO ONCOMING RN.
[2021-07-07 21:12] LABS: CALCIUM 7.6 mg/dL (8.5-10.1); CREATININE 2.3 mg/dL (0.7-1.3); MAGNESIUM 1.9 mg/dL (1.8-2.4); POTASSIUM 3.7 mmol/L (3.5-5.1)
[2021-07-08] VITALS (91 sets, daily range): BP systolic 63–125; BP diastolic 27–88
[2021-07-08 00:43] LABS: HEMATOCRIT 35.4 % (42.0-52.0); HEMOGLOBIN 11.6 gm/dL (14.0-18.0); MCH 29.1 pg (26.0-34.0); MCHC 32.7 g/dL (28.0-37.0); RBC 3.98 mil/uL (4.50-6.00); RDW 14.2 % (10.5-14.5); WBC 14.1 thou/uL (4.0-11.0)
[2021-07-08 00:50] LABS: ALBUMIN 2.7 g/dL (3.4-5.0); CALCIUM 7.8 mg/dL (8.5-10.1); CREATININE 2.1 mg/dL (0.7-1.3); POTASSIUM 3.4 mmol/L (3.5-5.1)
[2021-07-08 05:02] LABS: ALBUMIN 2.7 g/dL (3.4-5.0); CALCIUM 7.8 mg/dL (8.5-10.1); PHOSPHORUS 1.1 mg/dL (2.6-4.7); POTASSIUM 3.6 mmol/L (3.5-5.1)
--- NOTE | 2021-07-08 06:15 | NUR ---
PT REMAIN ALERT AND ORIENT TIMES THREE, SLIGHT-MODERATELY SEDATED. FAMILY MEMBER CALLED AROUND 0330 INQUIRING ABOUT PT, STATE THAT SHE WAS HIS MOTHER. A BRIEF UP-DATE WAS PROVIDED TO THE FAMILY MEMBER. SR PER MONITOR. BP SUPPORTED WITH LEVOPHED. 80'S-110/80. LOW GRADE TEMP 99.0 BEAR RYANGGER DC'D EARLIER. BS WAS 103; INSULIN GTT DECREASED TO 0.5 UNITS/HR. ANION GAP NOW 10. SLOW/CONTINUAL PROGRESS TOWARDS DC GOALS. WILL CONTINUE TO MONITOR.
[2021-07-08 08:48] LABS: ALBUMIN 2.5 g/dL (3.4-5.0); CALCIUM 7.3 mg/dL (8.5-10.1); CREATININE 1.9 mg/dL (0.7-1.3); POTASSIUM 3.9 mmol/L (3.5-5.1)
[2021-07-08 13:16] LABS: HCO3 12.9 mmol/L (22.0-26.0); PCO2 33.3 mmHg (35.0-45.0); PO2 161.7 mmHg (80.0-100.0); pH 7.205 (7.360-7.450); sO2 98.7 % (92.0-98.0)
--- NOTE | 2021-07-08 16:12 | NUR ---
PT INTUBATED AND SEDATED, VENT SETTINGS TITRATED BY RT. FSC. PT ON PRECEDEX GTT FOR VENT MANAGEMENT. LEVOPHED GTT FOR BP SUPPORT, INSULIN GTT PER [facility] PROTOCAL. DKA PROTOCAL. RESTRAINTS PER PROTOCAL. PT WITH LOW GRADE FEVER (99.5), POLYUREA, NO BM, NPO, R-IJ IN PLACE AND FUNCTIONING WELL. PT AND MOTHER HAVE BEEN THOUROUGHLY UPDATED AND EDUCATED ON PT CONDITION AND POC. PT SLOWLY PROGRESSING TOWARDS POC.
[2021-07-08 16:20] LABS: ALBUMIN 2.3 g/dL (3.4-5.0); CALCIUM 7.1 mg/dL (8.5-10.1); CREATININE 1.9 mg/dL (0.7-1.3); POTASSIUM 4.7 mmol/L (3.5-5.1); TOTAL BILIRUBIN 0.3 mg/dL (0.2-1.0); TOTAL PROTEIN 5.2 g/dL (6.4-8.2)
[2021-07-08 17:07] LABS: ALBUMIN 2.3 g/dL (3.4-5.0); CALCIUM 7.2 mg/dL (8.5-10.1); POTASSIUM 4.1 mmol/L (3.5-5.1); TOTAL BILIRUBIN 0.2 mg/dL (0.2-1.0); TOTAL PROTEIN 5.3 g/dL (6.4-8.2)
[2021-07-09] VITALS (83 sets, daily range): BP systolic 92–131; BP diastolic 62–96
[2021-07-09 05:19] LABS: BE(vivo) -11.8 mmol/L (-2 to +3); HCO3 14.1 mmol/L (22.0-26.0); PCO2 32.2 mmHg (35.0-45.0); PO2 152.9 mmHg (80.0-100.0); sO2 98.7 % (92.0-98.0)
[2021-07-09 05:32] LABS: BASOPHILS 0.3 % (0.0-2.0); HEMATOCRIT 29.4 % (42.0-52.0); LYMPHOCYTES 9.7 % (24.0-44.0); MCH 30.3 pg (26.0-34.0); MCV 89.1 fL (80.0-100.0); MONOCYTES 4.9 % (1.0-8.0); POLYS 85.1 % (36.0-66.0); WBC 10.6 thou/uL (4.0-11.0)
[2021-07-09 05:34] LABS: PLATELET COUNT 155 thou/uL (150-400)
[2021-07-09 05:50] LABS: CREATININE 1.9 mg/dL (0.7-1.3); POTASSIUM 3.2 mmol/L (3.5-5.1)
[2021-07-09 05:57] LABS: ALBUMIN 2.8 g/dL (3.4-5.0); PHOSPHORUS 3.1 mg/dL (2.5-4.9); TOTAL BILIRUBIN 0.3 mg/dL (0.2-1.0); TOTAL PROTEIN 5.7 g/dL (6.4-8.2)
[2021-07-09 06:06] LABS: CALCIUM 7.8 mg/dL (8.5-10.1)
[2021-07-09 17:42] LABS: CALCIUM 7.9 mg/dL (8.5-10.1); CREATININE 1.7 mg/dL (0.7-1.3); POTASSIUM 3.2 mmol/L (3.5-5.1)
[2021-07-09 17:43] LABS: MAGNESIUM 1.4 mg/dL (1.8-2.4)
[2021-07-10] VITALS (94 sets, daily range): BP systolic 82–115; BP diastolic 43–85
--- NOTE | 2021-07-10 01:00 | NUR ---
ACCUCHECK 70 INSULIN GTT STOPPED
[2021-07-10 04:00] LABS: BE(vivo) -11.1 mmol/L (-2 to +3); HCO3 14.4 mmol/L (22.0-26.0); PO2 162.4 mmHg (80.0-100.0); sO2 98.9 % (92.0-98.0)
[2021-07-10 04:02] LABS: pH 7.284 (7.360-7.450)
[2021-07-10 05:40] LABS: ABSOLUTE NEUTROPHILS 8.9 thou/uL (1.4-8.2); BASOPHILS 0.5 % (0.0-2.0); EOSINOPHILS 0.3 % (0.0-3.0); HEMATOCRIT 27.4 % (42.0-52.0); HEMOGLOBIN 9.4 gm/dL (14.0-18.0); LYMPHOCYTES 12.2 % (24.0-44.0); MCH 30.9 pg (26.0-34.0); MCHC 34.2 g/dL (28.0-37.0); MCV 90.2 fL (80.0-100.0); MONOCYTES 4.5 % (1.0-8.0); PLATELET COUNT 132 thou/uL (150-400); POLYS 82.5 % (36.0-66.0); RBC 3.03 mil/uL (4.50-6.00); RDW 15.2 % (10.5-14.5); WBC 10.8 thou/uL (4.0-11.0)
--- NOTE | 2021-07-10 06:00 | NUR ---
REMAINS INTUBATED AND SEDATED. PROPOFOL PRECEDEX GTTS. INSULIN GTT REMAINS OFF. 1400 CC UO THIS SHIFT. SUCTIONED FOR A SMALL AMT SECRETIONS DR RAMOS CALLLED CRITICAL ABGS THIS AM PH 7.28 NO ORDERS AT THIS TIME. DR RAMOS DID SAY WE MAY TRY TO EXTUBATE TODAY. PROGRESSING TOWARD GOALS
[2021-07-10 06:07] LABS: ALBUMIN 2.3 g/dL (3.4-5.0); CALCIUM 8.1 mg/dL (8.5-10.1); CREATININE 1.5 mg/dL (0.7-1.3); MAGNESIUM 2.1 mg/dL (1.8-2.4); PHOSPHORUS 2.8 mg/dL (2.6-4.7); POTASSIUM 4.2 mmol/L (3.5-5.1); TOTAL BILIRUBIN 0.5 mg/dL (0.2-1.0); TOTAL PROTEIN 5.2 g/dL (6.4-8.2)
--- NOTE | 2021-07-10 08:00 | NUR ---
PT IS STABLE ON THE VENT BUT IS COLD; HIS TEMP IS NOT READING. HE IS WARMING WITH THE JOSE HUGGER. HIS MOTHER IS AT THE BEDSIDE. WILL CONTINUE TO MONITOR.
--- NOTE | 2021-07-10 10:56 | NUR ---
Attention: Case Management Manuela, mom [phone] communicated her concern for her son upon discharge. states pt doesn't always comply with diabetic management. he has been depressed for about 3 yrs and some medications for diabetic complications have been administered for depression however he has recently had worsening depression. he is too tired to lift his head, take/administer necessary medications or care for himself at home. he is without insurance, in recent months disabled. she continues that he is unable to obtain necessary medications without insurance and needs access to medications, medicaid, rehab, home health and an insulin pump. pt resides alone, mother resides in [place].
--- NOTE | 2021-07-10 13:02 | NUR ---
RN TO RN REPORT COMPLETE. KENDELL CLEARY IS ASSUMING CARE OF THIS PT.
[2021-07-10 13:40] LABS: HCO3 17.2 mmol/L (22.0-26.0); PCO2 26.2 mmHg (35.0-45.0); PO2 148.1 mmHg (80.0-100.0); pH 7.435 (7.360-7.450)
--- NOTE | 2021-07-10 15:43 | NUR ---
1543- Nurse called both spokes persons to update them of patient status with getting ET tube out. He was extubated at 1530 today without complication. He has a soft voice at this moment. Nurse educated him on the face shield and resting his voice. Patient has a visitor here.
--- NOTE | 2021-07-10 15:58 | NUR ---
Nurse talked with Manuela, patients mom and albad her on patient status and extubation.
--- NOTE | 2021-07-10 19:41 | NUR ---
Nurse checked patients blood glucose around 1222, it was 68. Nurse talked with Dr. Caldwell about hypoglycemia. Orders received. Dr. Caldwell ordered moderate dose ssi, with D5 1/2 NS at 150ml/hour. This was read back and confirmed. Recheck glucose was 92. Nurse then checked blood glucose this evening and first reading was 54. Reading was confirmed with second blood glucose reading at 46. This was informed to Dr. Cuadra as patient was extubated at 1530, to inform of glucose and see if patient can swallow. Dr. Cuadra expressed patient can have liquids and be treated with apple juice. Apple juice was given per protocol, patient passed swallow evaluation. Voice quality stronger, no hoarseness, no coughing, no choking noted. Repeat check was 99. Patient alert and cooperative throughout all treatments and therapies today.
[2021-07-11] VITALS (41 sets, daily range): BP systolic 74–136; BP diastolic 37–77
--- NOTE | 2021-07-11 00:07 | NUR ---
PATIENTS BLOOD SUGAR IS HIGHLY LABILE THIS SHIFT. CHECKED PATIENT AT APPROXIMATELY 2200 WITH PATIENTS BS AT 114. AN HOUR AND A HALF LATER PATIENTS SUGAR WAS 65 AND 63 RESPECTIVELY . PATIENT HAS BEEN EXPRESSING HUNGER AND DESIRE TO EAT FOOD. PATIENT PROMPTLY GIVEN JUICE WITH CALL PLACED TO PROVIDER. ORDERS OBTAINED FOR CARB CONTROLLED DIET FOR PATIENT. ATE TURKEY SANDWICH IN COMPANY OF THIS NURSE WITHOUT INCIDENT WITH NURSE NOTING NO SIGNS OF ASPIRATION. NURSE TO RECHECK BLOOD SUGAR IN TIMELY MANNER AND TO CONTINUE TO MONITOR.
--- NOTE | 2021-07-11 04:05 | NUR ---
PATIENT FAILED LEVOPHED TITRATION EFFORTS. DROPPED RATE OF INFUSION IN HALF FROM 1 TO 0.5 APPROXIMATELY AND PATIENT BEGAN EXHIBITING BLOOD PRESSURES 74/47 AND 79/46. PATIENT WAS ASSYMPTOMATIC DURING. RATE PLACED BACK AT 1 WITH GOOD RESULTS. NURSE TO CONTINUE MONITORING.
--- NOTE | 2021-07-11 05:39 | NUR ---
ASSUMED PATIENT CARE AT 1845. VITAL SIGNS MOSTLY STABLE, WITH PATIENT EXHIBITING HYPOTENSION. PATIENT UNABLE TO BE WEENED FROM LEVOPHED ON SHIFT (SEE NOTE). FULLY ALERT AND ORIENTED, PATIENT HAS BEEN ABLE TO PARTICIPATE IN CARE AND CALL APPROPRIATELY FOR NEEDS. BREATHING STABLE ON ROOM AIR EVIDENCED BY CONTINUOUS OXYGEN SATURATIONS AND FREQUENT ASSESSMENTS. PATIENT HAS SHOWN TEMPERATURE THROUGHOUT SHIFT DESPITE BLANKETS BEING REMOVED AND TYLENOL PROVIDED. INSTANT PRINTER OPERATOR CONTACTED WITH ORDERS FOR NURSE TO CONTINUE TO MONITOR. PATIENTS BLOOD SUGARS HAVE BEEN LABILE WITH FREQUENT ACCU CHECKS TAKEN. PATIENT HAS BEEN ADVANCED TO SOLID FOODS WHICH HE TOLERATED WELL. CONTINUE PLAN OF CARE.
[2021-07-11 06:02] LABS: BASOPHILS 0.3 % (0.0-2.0); EOSINOPHILS 2.8 % (0.0-3.0); HEMATOCRIT 36.7 % (42.0-52.0); LYMPHOCYTES 13.7 % (24.0-44.0); MCH 29.1 pg (26.0-34.0); MCHC 32.6 g/dL (28.0-37.0); MCV 89.2 fL (80.0-100.0); PLATELET COUNT 180 thou/uL (150-400); POLYS 79.2 % (36.0-66.0); RBC 4.11 mil/uL (4.50-6.00); RDW 14.7 % (10.5-14.5); WBC 8.8 thou/uL (4.0-11.0)
[2021-07-11 06:23] LABS: ALBUMIN 2.3 g/dL (3.4-5.0); CALCIUM 7.9 mg/dL (8.5-10.1); CREATININE 0.8 mg/dL (0.7-1.3); MAGNESIUM 1.6 mg/dL (1.8-2.4); PHOSPHORUS 1.2 mg/dL (2.5-4.9); POTASSIUM 3.6 mmol/L (3.5-5.1); TOTAL BILIRUBIN 0.8 mg/dL (0.2-1.0)
[2021-07-11] MEDS ORDERED: FREESTYLE LIBR1 EAC2 MISCELL (09:06)
--- NOTE | 2021-07-11 15:22 | NUR ---
ASSUMED CARE OF PT AT 0700. SPOKE WITH PT MOTHER AT 1315 AND UPDATED HER ON PT STATUS. PT WAS CONCERNED THAT CELL PHONE WAS LOST, CONFIRMED WITH MOTHER THAT HIS CELL PHONE IS AT THE GRANDMOTHERS HOUSE.
--- NOTE | 2021-07-11 16:51 | NUR ---
PT BEING TRANSFERRED TO [facility] WITH FLIP FLOPS, SWEAT PANTS, AND SILVER EARRINGS.
--- NOTE | 2021-07-11 17:00 | NUR ---
Chart reviewed and case discussed with the care team. Pt known to cm from another admission one month ago with severe DKA. The pt lives alone but has local family support. His mother Manuela lives in [facility] [facility] but has been in town to visit and getting updates from nursing. The pt was ext, weaned off levo and insuling gtt today. Transfer out of the ICU later today. Pt's mother notes concerns regarding compliance, mental health, and lack of health ins. [facility] referral in progress. They did attempt to visit with him today. He has continued to indicate he has ambetter coverage but with no id card/id number is can not be verified. He has seen Dr. Oh at [facility] in the past. 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 Will f/u with the pt to encourage him to f/u with his current providers at [facility]. Pt may benefit from psych eval and script assistance at [facility].
--- NOTE | 2021-07-12 03:06 | NUR ---
ASSUMED CARE OF PT AT SHIFT CHANGE. PT IS AOX4 AND LETS NEEDS BE KNOWN. FALL PRECAUTION IN PLACE. PT REPORTED SOME PAIN; PRNS PROVIDED. PT DENIED NAUSEA AND SOA. ASSESSMENT CHARTED. PT WAS ABLE TO GET COMFORTABLE AND SLEEP PART OF THE SHIFT. PT WAS EDUCATED RE BS MANAEGMENT. VSS AND NO S/S OF ACUTE DISTRESS. WILL CONTINUE TO MONITOR FOR CHANGES.
[2021-07-12 04:13] VITALS: BP 122/64
[2021-07-12 05:26] LABS: ALBUMIN 2.5 g/dL (3.4-5.0); CALCIUM 8.4 mg/dL (8.5-10.1); CREATININE 1.3 mg/dL (0.7-1.3); MAGNESIUM 1.8 mg/dL (1.8-2.4); POTASSIUM 3.7 mmol/L (3.5-5.1); TOTAL BILIRUBIN 0.5 mg/dL (0.2-1.0); TOTAL PROTEIN 5.4 g/dL (6.4-8.2)
[2021-07-12] MEDS ORDERED: NEURONTIN 300M300 M2 PO (09:05)
[2021-07-12] MEDS ORDERED: LANTUS SUBQ ×2 (09:06→11:05)
[2021-07-12] MEDS ORDERED: HUMALOG100 UNIT/1 SUBQ (09:06)
[2021-07-12 09:47] VITALS: BP 98/57
--- NOTE | 2021-07-12 11:32 | NUR ---
Assumed pt care at 7am.Pt in bed very anxious about dc home today after seen by doctor.Assessment completed.vss.Pt wanted to see his endocrinology in am in order to get timi free style 14 and also insulin pump.Diabetic education given by this rn.Dr Caldwell here,juan colvin noted.Rij dc'd after am meds given with breakfast.commercial property manager informed abot pt dc home this am.Pt insisted in faxing all dc meds to his pharmacy on [address] despite being told that rx can be fill at [facility] pharmacy and paid for by hospital.At 1120,pt dc home in [place] accompanied by biology manager.
--- NOTE | 2021-07-12 14:37 | NUR ---
UPON ARRIVING ON UNIT THIS AM NURSE INDICATED THAT PT HAD ORDERS TO DC HOME THIS DAY. CM FOLLOWED UP WITH PT AT BEDSIDE THIS DAY. CM ROLE INTRODUCED. PT APPEARED TO BE A&O X4. CM INDICATED THAT PT HAD ORDERS FOR DC. CM INDICATED THAT PHYSICIAN HAD ORDERED TWO TYPES OF INSULIN UPON DC ANOTHER MEDICATION AND A GLUCOSE MONITORING SYSTEM. CM ASKED IF PT COULD AFFORD TO FILL THESE SCRIPTS THAT HAD BEEN CALLED INTO THE [facility] [address].. HE STATED YES. CM OFFERED TO [facility] OUT FOR HIM. CM CALLED AND DID SO. CM NOTIFIED PT OF [facility]S HE EXPRESSED NO ISSUE IN FILLING THEM AND WROTE COSTS DOWN. PT HAD [facility] APPOINTMENT WITH AN ENDO IN [place]. CM GOT CALL FROM PT'S MOTHER WHO INDICATED THAT PT CAN'T AFFORD MEDS. CM HAD OP PHARMACY HERE AT [facility] TRANSFER SCRUIPTS HERE TO [place]. MEDS WERE FILLED HERE AND CM NOTIFIED PT'S MOTHER THAT HE CAN PICK MEDS UP HERE BY 1800. CM NOTIFIED [facility] AND THEY ARE TO FOLLOW UP WITH PT' MOTHER WELL. NO OTHER CM INTERVNETION INDICATED. CASE CLOSED. TOTAL COST OF MEDS VOUCHERED IS $208.11.
--- NOTE | 2021-07-14 11:28 | NUR ---
Follow up call from Mother Manuela at [phone] as she called for an update on her concerns including CM involvement. Did apologize as I was in the process of calling her when her call came in and again expressed my apology for not getting back to her on 07-13-21. Noted to mother that patient was deemed A&O x4 and competent to make his own decisions. Did note that CM did call on the day of discharge and informed Mother that it was the patient who requested himself that medication be called to his pharmacy of choice and once she heard upon his discharge from the patient he could not afford the medication the CM did get the scripts transferred to [facility] to be filled and paid for by the hospital. Notably the [facility] remained opened past 6:00 PM on 06-11-21 to accommodate the patient's return to supervisor opening and picking these prescriptions. Did review face to face with previous SW on the case who reiterates that patient is able to speak for himself and he oversaw and agreed to his discharge plan of care. Discussed with Belt Loop Maker who will assure going forward all CM requests that are received by nursing are put in as CM consults. Also confirmed with Mother that she will be the contact for [facility] in trying to get the patient on Medicaid services and confirmed with [facility] they had her correct phone number for future follow up. Mother was also given my number for any possible future admissions as the Mother would like to be involved with her son's permission in discharge planning.
== END 2021-07-12 11:15 | disposition home or self-care (01) | DRG 637 ==
LOC: ER 09:07 → EROBS 11:53 → ICU 16:45 → 4W 07-11 17:18
PROVIDERS: Emergency Medicine; Hospitalist; Internal Medicine Nephrology; Internal Medicine Pulmonary Disease; Pediatrics; ADMIT Hospitalist; ATTEND Hospitalist
PROC: 0BH17EZ Insertion of Endotracheal Airway into Trachea, Via Natural or Artificial Opening (ICD-10-PCS; principal; 2021-07-07)
PROC: 5A1945Z Respiratory Ventilation, 24-96 Consecutive Hours (ICD-10-PCS; principal; 2021-07-07)
PROC: 02HV33Z Insertion of Infusion Device into Superior Vena Cava, Percutaneous Approach (ICD-10-PCS; principal; 2021-07-07)
PROC: B548ZZA Ultrasonography of Superior Vena Cava, Guidance (ICD-10-PCS; principal; 2021-07-07)
DX: E10.11 Type 1 diabetes mellitus with ketoacidosis with coma (principal); R57.1 Hypovolemic shock; J96.01 Acute respiratory failure with hypoxia; N17.0 Acute kidney failure with tubular necrosis; K50.90 Crohn's disease, unspecified, without complications; E46 Unspecified protein-calorie malnutrition; Z68.1 Body mass index [BMI] 19.9 or less, adult; E87.1 Hypo-osmolality and hyponatremia; E87.3 Alkalosis; Z20.822 Contact with and (suspected) exposure to COVID-19; E87.5 Hyperkalemia; Z91.14 Patient's other noncompliance with medication regimen; E83.39 Other disorders of phosphorus metabolism; E10.40 Type 1 diabetes mellitus with diabetic neuropathy, unspecified
CPT/HCPCS: 10045; 10078

== ENCOUNTER 2021-12-22 16:50 | Inpatient (IN) | payer OTHER ==
[2021-12-22] VITALS (11 sets, daily range): BP systolic 60–112; BP diastolic 30–70
[~2021-12-22] VITALS: Ht 175.3 cm; Wt 54.1 kg
--- NOTE | ~2021-12-22 | EMS ---
[address] [address] EMS Patient Care Report Name: SHLOMO VILCHIS Room #: 245-P ADM IN M.R.#: [id number] Admission: 12/22/21 Attend Phys: Flavio Doe MD Discharge: Date of : [birth year] Report #: [id number] THIS REPORT FOR: //name// Report Transmitted: 12/25/2021 13:26 EMS Care Summary [place], [place]/[facility] Incident [id number] @ 12/22/2021 15:58 Incident Location [address] [place] [id number] Patient SHLOMO VILCHIS Male, 26 Years 1995 Patient Address [address] [place] [id number] Patient History Diabetes, Patient Medications Other, Chief Complaint HYPERGLYCEMIA Disposition Transported No Lights/[place] Dispatch Reason Diabetic Problem Transported To [facility] Narrative M30 RESPONDED TO A DIABETIC PROBLEM. ON SCENE M30 FOUND 26 YR OLD MALE LAYING PRONE ON THE BED. FIRST RESPONDERS ON SCENE STATED THAT HE WAS FOUND BY OTHERS IN THE HOME CONSCIOUS, BUT NOT ALERT. LAST KNOWN NORMAL WAS THIS MORNING. PT WAS A&OX0, WITH A GCS OF 10. NO TRAUMA OR BLEEDIN NOTED. FIRST RESPONDERS STATED THE THE PATIENT WAS A KNOWN DIABETIC WITH A GLUCOSE READIG ON SCENE OF "HI" AND ALSO HYPOTENSIVE. PT WAS ROLLED ONTO A RAFIA CORRECTIONAL SECURITY OFFICER AND MOVED BBY CREWS [address] [place] [address] EMS Patient Care Report Name: SHLOMO VILCHIS Room #: 245-P ADM IN M.R.#: [id number] Admission: 12/22/21 Attend Phys: Flavio Doe MD Discharge: Date of : [birth year] Report #: [id number] TO THE STRETCHER IN THE FRONT STEPS. PT WAS SECURED WITH SEATBELTS [facility] SEVERAL IV ACCESS ATTEMPTS WERE PERFORMED UNSUCCESSFULLY. MORE ATTEMPTS EN ROUTE WITHOUT LUCK. PT WAS PLACED IN A [place] POSITION TO ASSIST WITH BP. PT'S CONDITION REMAINED UNCHANGED IT CONTINUED TO BE CLOSELY MONITORED EN ROUTE. PT CARE WAS TRANSFERRED TO ER STAFF IN PATIENT ASESSMENT ROOM. PT WAS MOVED BY ER AND EMS STAFF. PT WAS LEFT IN BED UNDER PHYSICIAN CARE Initial Vitals @16:20P: 56,SpO2: 68, @16:28P: 127,BP: 52/40,SpO2: 98, @16:26P: 128,SpO2: 78, @16:24P: 64,BP: 54/37, @16:23P: 64,R: 18,BP: 50/31,Pain: 0/10,GCS: 10,Glucose: -2,SpO2: 94,Revised Trauma: 9, Assessments @16:10MENTAL:Unresponsive,SKIN:Cold,HEENT:Head/Face: No Abnormalities,LUNG SOUNDS:General: No Abnormalities,Left Upper: No Abnormalities,Right Upper: No Abnormalities,Left Lower: No Abnormalities,Right Lower: No Abnormalities,ABDOMEN:General: No Abnormalities,Left Upper: No Abnormalities,Right Upper: No Abnormalities,Left Lower: No Abnormalities,Right Lower: No Abnormalities,PELVIS//GI:No Abnormalities,EXTREMITIES:Left Arm: No Abnormalities,Right Arm: No Abnormalities,Left Leg: No Abnormalities,Right Leg: No Abnormalities,PULSE:NEURO:No Abnormalities, Impression Diabetic Hyperglycemia Procedures @16:10 ALS Assessment Response: UnchangedSucceeded @16:14 IV Therapy - Saline Lock 0cc (20 ga) Site: Antecubital-Left Response: UnchangedFailed @16:21 IV Therapy - Saline Lock 0cc (20 ga) Site: Hand-Left Response: UnchangedFailed @16:19 IV Therapy - Saline Lock 0cc (20 ga) Site: Antecubital-Right Response: UnchangedFailed Timeline 15:57,Call Received 15:57,Dispatch Notified 15:58,Dispatched 15:59,En Route 16:09,On Scene 16:10,[place] [address] EMS Patient Care Report Name: SHLOMO VILCHIS Room #: 245-P ADM IN M.R.#: [id number] Admission: 12/22/21 Attend Phys: Flavio Doe MD Discharge: Date of : [birth year] Report #: [id number] 16:10,ALS Assessment,Response: UnchangedSucceeded, 16:14,IV Therapy - Saline Lock 0cc 20 ga Site: Antecubital-Left,Response: UnchangedFailed, 16:19,IV Therapy - Saline Lock 0cc 20 ga Site: Antecubital-Right,Response: UnchangedFailed, 16:20,BP: / M,PULSE: 56,RR: R,SPO2: 68 Ox,ETCO2: ,BG: ,PAIN: ,GCS: , 16:21,IV Therapy - Saline Lock 0cc 20 ga Site: Hand-Left,Response: UnchangedFailed, 16:23,BP: 50/31 M,PULSE: 64,RR: 18 R,SPO2: 94 Ox,ETCO2: ,BG: -2,PAIN: 0,GCS: 10, 16:24,BP: 54/37 M,PULSE: 64,RR: R,SPO2: Ox,ETCO2: ,BG: ,PAIN: ,GCS: , 16:26,BP: / M,PULSE: 128,RR: R,SPO2: 78 Ox,ETCO2: ,BG: ,PAIN: ,GCS: , 16:26,Depart Scene 16:28,BP: 52/40 M,PULSE: 127,RR: R,SPO2: 98 Ox,ETCO2: ,BG: ,PAIN: ,GCS: , 16:38,At Destination 17:04,Call Closed Disclaimer v1.1 Copyright 2021 [employer] This EMS Care Summary contains data elements from the applicable legal record (which may be displayed differently). It is designed to provide pertinent information for the following purposes: continuity of care, clinical quality, and state data reporting. The complete legal record is available to ED staff and administrators of the receiving hospital in [employer]'s Patient Tracker. All data is provided "as is."
[~2021-12-22 16:50] MED LIST changes: +FREESTYLE LIBR1 EAC2 MISCELL; +NEURONTIN 300M300 M2 PO
[2021-12-22 17:03] LABS: BE(vivo) -29.7 mmol/L (-2 to +3); HCO3 2.9 mmol/L (22.0-26.0); PCO2 17.2 mmHg (35.0-45.0); pH 6.846 (7.360-7.450); sO2 97.2 % (92.0-98.0)
[2021-12-22 17:48] LABS: HEMATOCRIT 41.5 % (42.0-52.0); HEMOGLOBIN 9.9 gm/dL (14.0-18.0); MCH 28.8 pg (26.0-34.0); MCHC 23.7 g/dL (28.0-37.0); MCV 121.2 fL (80.0-100.0); RBC 3.42 mil/uL (4.50-6.00); RDW 18.3 % (10.5-14.5); WBC 29.8 thou/uL (4.0-11.0)
[2021-12-22 19:00] LABS: ALBUMIN 2.9 g/dL (3.4-5.0); BUN 65 mg/dL (7-18); CHLORIDE 96 mmol/L (98-107); CREATININE 4.9 mg/dL (0.7-1.3); MAGNESIUM 3.5 mg/dL (1.8-2.4); SALICYLATE 5.2 mg/dL (2.8-20.0); SGOT 12 U/L (15-37); SGPT 31 U/L (16-63); SODIUM 133 mmol/L (136-145); TOTAL BILIRUBIN 0.5 mg/dL (0.2-1.0); TOTAL PROTEIN 6.3 g/dL (6.4-8.2)
--- NOTE | 2021-12-22 19:00 | NUR ---
INTRAOSSEOUS LINE NOTED TO LEFT HUMERAL HEAD. BLOOD IS ASPIRATED FROM LINE BUT PATIENT FINDS SAME PAINFUL ADDITIONAL LARGE BORE IV ACCESS IS OBTAINED FOR LEVOPHED
[2021-12-22 19:06] LABS: ANION GAP 32 mmol/L (7-16)
--- NOTE | 2021-12-22 19:15 | NUR ---
PATIENT RESPONSIVE TO PAINFUL STIMULI REMAINS 2:1 CARE TO STABILIZE
[2021-12-22 19:16] LABS: PHOSPHORUS 15.5 mg/dL (2.6-4.7)
[2021-12-22 19:32] LABS: URINE BILIRUBIN NEGATIVE (Negative); URINE BLOOD 3+ (Negative); URINE CLARITY CLEAR; URINE COLOR YELLOW; URINE GLUCOSE-RANDOM* 3+ (Negative); URINE KETONES 1+ (Negative); URINE LEUKOCYTES-REFLEX NEGATIVE (Negative); URINE NITRITE-REFLEX NEGATIVE (Negative); URINE PROTEIN (DIPSTICK) 1+ (Negative); URINE UROBILINOGEN 0.2 E.U./dl (0.2-1.0)
[2021-12-22 19:43] LABS: AMP/METHAMP Negative (Negative); BACTERIA-REFLEX 1-9 Few /HPF (None Seen); BARBITURATES Negative (Negative); BENZODIAZEPINES Negative (Negative); CASTS None Seen /LPF (None Seen); COCAINE Negative (Negative); METHADONE Negative (Negative); OPIATES Negative (Negative); PCP Negative (Negative); SQUAMOUS >10 Many /LPF (0-3); URINE RBC >20 Many /HPF (NONE SEEN); URINE WBC-REFLEX 0-5 Rare /HPF (0-5)
[2021-12-22 19:44] LABS: CRYSTALS None Seen /LPF (None Seen)
[2021-12-22 20:02] LABS: CO2 < 5 mmol/L (21-32); GLUCOSE 1729 mg/dL (74-106); POTASSIUM 7.1 mmol/L (3.5-5.1)
[2021-12-22 20:03] LABS: CALCIUM 14.6 mg/dL (8.5-10.1)
--- NOTE | 2021-12-22 20:20 | NUR ---
[facility]O OUTPUT IS 650 SGTRAW COLORED URINE MAP AT 67 LEVOPHED AT 0.019 MCG/KG/MIN PERIPHERAL IV LFA ATTEMPT TO USE I/O LEFT HUMERUS, GOOD BLOOD RETURN WITH ASPIRATION BUT PATIENT MOANS AND BECOMES RESTLESS AND THRASHES ABOUT IN THE BED SAME IS FLUSHED AND LOCKED OFF PATIENT HAS HAD TOTAL 2000 MLS NORMAL SALINE IV INFUSED, 3RD LITER IS HUNG
--- NOTE | 2021-12-22 20:23 | NUR ---
REPEAT SERUM GLUCOSE DRAWN AND SENT AT 1925 HRS
[2021-12-22 21:39] LABS: ALBUMIN 3.5 g/dL (3.4-5.0); BUN 65 mg/dL (7-18); CHLORIDE 95 mmol/L (98-107); CREATININE 5.1 mg/dL (0.7-1.3); PHOSPHORUS 15.2 mg/dL (2.5-4.9); SODIUM 135 mmol/L (136-145)
--- NOTE | 2021-12-22 21:50 | NUR ---
PATIENT IS ROUSABLE TO VERBAL I ASK PATIENT IF HE WOULD LIKE ME TO CALL ANYONE AND HE SAID YES CALL PLACED TO PATIENTS FATHER ANASTASIIA, NUMBER OBTAINED FROM PRIOR VISITS [phone] UPDATED ON PATIENT STATUS AND PLAN OF CARE, ADMISSION TO ICU AND DEGREE OF ILLNESS HE ADVISES THAT PATIENT DOES NOT TAKE CARE OF HIMSELF AND INQUIRES ABOUT A REHAB FACILITY FOR PATIENT, ADVISED THAT I WILL PASS THAT ALONG TO IN PATIENT PROVIDER BUT AT THIS POINT STABILIZING HIM MEDICALLY IS THE PRIORITY THIS IS COMMUNICATED TO INPATIENT PROVIDER
[2021-12-22 21:57] LABS: ANION GAP 35 mmol/L (7-16)
[2021-12-22 21:59] LABS: CALCIUM 9.1 mg/dL (8.5-10.1)
[2021-12-22 22:00] LABS: CO2 < 5 mmol/L (21-32); POTASSIUM 7.5 mmol/L (3.5-5.1)
[2021-12-22 22:01] LABS: GLUCOSE 1521 mg/dL (74-106)
[2021-12-23] VITALS (93 sets, daily range): BP systolic 73–116; BP diastolic 35–81
--- NOTE | 2021-12-23 00:15 | NUR ---
PT ADMITTED FROM ER AT 2200. PT ARRIVED ON LEVO, INSULIN, AND BICARB. pT VITAL SIGNS STABLE DOROTEO ARRIVAL. PT ON JOSE HUGGER FOR HYPOTHERMIA. PT FAMILY CONTACTED IN ER. FOR FURTHER ASSESSMENT VIEW DOCUMENTATION.
[2021-12-23 02:22] LABS: BE(vivo) -3.6 mmol/L (-2 to +3); HCO3 20.8 mmol/L (22.0-26.0); PCO2 35.1 mmHg (35.0-45.0); PO2 98.1 mmHg (80.0-100.0); pH 7.391 (7.360-7.450); sO2 97.5 % (92.0-98.0)
[2021-12-23 02:44] LABS: CALCIUM 8.8 mg/dL (8.5-10.1); PHOSPHORUS 2.8 mg/dL (2.6-4.7)
[2021-12-23 02:46] LABS: CREATININE 3.6 mg/dL (0.7-1.3); POTASSIUM 3.1 mmol/L (3.5-5.1)
[2021-12-23 05:29] LABS: CALCIUM 8.6 mg/dL (8.5-10.1); POTASSIUM 3.5 mmol/L (3.5-5.1)
[2021-12-23 05:34] LABS: ALBUMIN 2.9 g/dL (3.4-5.0); CALCIUM 8.5 mg/dL (8.5-10.1); PHOSPHORUS 3.2 mg/dL (2.6-4.7); POTASSIUM 3.5 mmol/L (3.5-5.1)
--- NOTE | 2021-12-23 06:35 | NUR ---
PT PROGRESSING TOWARD PLAN OF CARE AEB IN STABALIZATION OF LABS, DECREASE INSULIN GTT. PT UNCORROPERATIVE WITH ADMISSION QUESTIONS. PT STILL DROWSY BUT WAKING UP MORE. RN WILL CONTINUE TO MONITOR
[2021-12-23 09:41] LABS: DIRECT BILIRUBIN 0.1 mg/dL (<0.1-0.2); MAGNESIUM 1.8 mg/dL (1.8-2.4); TOTAL BILIRUBIN 0.2 mg/dL (0.2-1.0); TOTAL PROTEIN 4.5 g/dL (6.4-8.2)
[2021-12-23 10:20] LABS: ALBUMIN 3.1 g/dL (3.4-5.0); CALCIUM 8.7 mg/dL (8.5-10.1); CREATININE 3.6 mg/dL (0.7-1.3); POTASSIUM 3.2 mmol/L (3.5-5.1)
[2021-12-23 10:59] LABS: PHOSPHORUS 2.5 mg/dL (2.6-4.7)
[2021-12-23 11:12] LABS: CALCIUM 6.3 mg/dL (8.5-10.1); CREATININE 1.8 mg/dL (0.7-1.3)
[2021-12-23 11:28] LABS: POTASSIUM 2.7 mmol/L (3.5-5.1)
--- NOTE | 2021-12-23 12:59 | NUR ---
VAT REMOVED I/O FROM LEFT SHOULDER, 4X4 OPSITE APPLIED
[2021-12-23 13:37] LABS: ALBUMIN 2.7 g/dL (3.4-5.0); CREATININE 2.2 mg/dL (0.7-1.3); MAGNESIUM 2.3 mg/dL (1.8-2.4); PHOSPHORUS 2.8 mg/dL (2.6-4.7); POTASSIUM 3.6 mmol/L (3.5-5.1)
[2021-12-23 13:38] LABS: CALCIUM 8.4 mg/dL (8.5-10.1)
--- NOTE | 2021-12-23 19:08 | NUR ---
ASSESSMENT CHARTED. PT PROGRESSING WELL TOWARDS DISCHARGE GOAL. INSULIN DRIP D/C. BS STABLE. NO CONCERNS AT THIS TIME.
[2021-12-24] VITALS (96 sets, daily range): BP systolic 88–120; BP diastolic 49–81
[2021-12-24 04:52] LABS: ABSOLUTE NEUTROPHILS 11.2 thou/uL (1.4-8.2); BASOPHILS 0.4 % (0.0-2.0); HEMATOCRIT 26.5 % (42.0-52.0); HEMOGLOBIN 8.6 gm/dL (14.0-18.0); LYMPHOCYTES 8.8 % (24.0-44.0); MCH 28.8 pg (26.0-34.0); MCHC 32.5 g/dL (28.0-37.0); MONOCYTES 3.4 % (1.0-8.0); POLYS 87.4 % (36.0-66.0); RBC 2.99 mil/uL (4.50-6.00)
[2021-12-24 04:55] LABS: MCV 88.5 fL (80.0-100.0); PLATELET COUNT 145 thou/uL (150-400); WBC 12.8 thou/uL (4.0-11.0)
[2021-12-24 05:07] LABS: ALBUMIN 2.4 g/dL (3.4-5.0); CALCIUM 8.3 mg/dL (8.5-10.1); CREATININE 1.7 mg/dL (0.7-1.3); POTASSIUM 3.7 mmol/L (3.5-5.1); TOTAL BILIRUBIN 0.4 mg/dL (0.2-1.0); TOTAL PROTEIN 5.4 g/dL (6.4-8.2)
[2021-12-24 05:36] LABS: GLYCOHEMOGLOBIN (HGB A1C) 14.8 % (4.8-5.6)
[2021-12-25] VITALS (14 sets, daily range): BP systolic 90–120; BP diastolic 51–85
--- NOTE | 2021-12-25 07:34 | EKG ---
[address] [address] ELECTROCARDIOGRAM REPORT Name: SHLOMO VILCHIS Room #: 245-P ADM IN M.R.#: [id number] Admission: 12/22/21 Attend Phys: Flavio Doe MD Discharge: Date of : [birth year] Report #: [id number] [facility] ED Test Date: 2021-12-22 Test Time: 16:43:15 Pat Name: SHLOMO VILCHIS Department: Room: [facility] Gender: M Hi Lo Driver: [place] : 1995 Requested By: Carlos Crane Order Number: [id number] MD: Andrew Martinez Measurements Intervals [place] Rate: 62 P: 58 CT: 195 QRS: -18 QRSD: 133 T: 62 QT: 510 QTc: 518 Interpretive Statements Sinus rhythm Nonspecific intraventricular conduction delay ST elev, probable normal early repol pattern Compared to ECG 07/07/2021 09:15:26 Intraventricular conduction delay now present ST (T wave) deviation now present Prolonged QT interval no longer present Electronically Signed On 12-25-2021 7:34:42 UTILITY SERVICE WORKER by Andrew Martinez [email or web address] <ELECTRONICALLY SIGNED> By: Andrew Martinez MD, FACC 12/25/21 0734 [id number] [id number] Andrew Martinez MD, [facility] /EPI
[2021-12-25 10:59] LABS: CALCIUM 8.6 mg/dL (8.5-10.1); CREATININE 1.2 mg/dL (0.7-1.3); POTASSIUM 4.1 mmol/L (3.5-5.1)
--- NOTE | 2021-12-25 13:01 | NUR ---
Discussed during los with the attending physician, possible able to dc home today. SHILA notified by bedside nurse that the attending physician wants patient to have resources for his diabetic and meter to check the blood sugar CM provided corey, corin and rich payan numbers to assist with primary care and medication needs after dc. SHILA visited with danny at bedside, he was having lunch. Education on discharge planning and DM resources. "i had meter to check my sugar but not sure what meng did with it when they were checking my blood sugar. I would like to get medication here at [facility] pharmacy on my way home, that will be easier then going to [facility] on the way home. I can afford my medication and dad can help little if needed. Have a p[facility]per Tee. SHILA passed on information to bedside nurse and attending physician. ."per tee. SHILA spoke with holger, they going to look and see if can find danny glucometer and call tee directly.
[2021-12-25] MEDS ORDERED: LANTUS SOL100 UNIT/1 SUBQ (13:48)
[2021-12-25] MEDS ORDERED: FREESTYLE LIBR1 EAC2 MISCELL (13:48)
[2021-12-25] MEDS ORDERED: HUMALOG100 UNIT/1 SUBQ (13:48)
--- NOTE | 2021-12-25 16:00 | NUR ---
EXTENSIVE DIABETIC TEACHING DONE ABOUT HYPOGLYCEMIA, HYPERGLYCEMIA. IMPORTANC OF MEASURING BLOOD GLUCOSE AND TAKING PRESCRIBED INSULIN. ALSO TAUGHT WITH PT COUSIN IN THE ROOM ABOUT CARBS AND COUNTING CARBS IN YOUR DIET. CAUTIONED PT ABOUT DRINKING LARGE AMOUNTS OF SODA ETC AND EATING ONE CARB AND ONE PROTIEN FOR HIS SNACKS. PT AND COUSIN VERBALIZED UNDERSTANDING BUT APPEAR TO NEED MORE REINFORCEMENT. PT INSTRUCTED TO TALK TO MD ABOUT MORE EDUCATION.
--- NOTE | 2021-12-25 16:30 | NUR ---
PT DISCHARGED FROM ICU VIA WC. ALL BELONGINGS WITH PT. PT COUSIN DROVE HIM HOME VIA CAR.
== END 2021-12-25 16:43 | disposition home or self-care (01) | DRG 871 ==
LOC: ER 16:50 → ICU 20:06 → EROBS 20:06 → ICU 22:23
PROVIDERS: Emergency Medicine; Internal Medicine Nephrology; Nurse Practitioner Family; Orthopaedic Surgery; Pediatrics; ADMIT Internal Medicine; ATTEND Internal Medicine
PROC: B548ZZA Ultrasonography of Superior Vena Cava, Guidance (ICD-10-PCS; principal; 2021-12-22)
PROC: 02HV33Z Insertion of Infusion Device into Superior Vena Cava, Percutaneous Approach (ICD-10-PCS; principal; 2021-12-22)
DX: A41.9 Sepsis, unspecified organism (principal); E10.10 Type 1 diabetes mellitus with ketoacidosis without coma; G93.41 Metabolic encephalopathy; R57.1 Hypovolemic shock; K50.90 Crohn's disease, unspecified, without complications; E87.1 Hypo-osmolality and hyponatremia; N17.9 Acute kidney failure, unspecified; E46 Unspecified protein-calorie malnutrition; E87.5 Hyperkalemia; E86.0 Dehydration; E10.65 Type 1 diabetes mellitus with hyperglycemia; I95.9 Hypotension, unspecified; Z20.822 Contact with and (suspected) exposure to COVID-19; Z68.1 Body mass index [BMI] 19.9 or less, adult; Z88.8 Allergy status to other drugs, medicaments and biological substances; Z91.19 Patient's noncompliance with other medical treatment and regimen
CPT/HCPCS: 10078; 10203